=== PATIENT | male | born 1995 | race Caucasian/White ===

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

== ENCOUNTER → 2017-01-26 | Outpatient (CLI) | payer OTHER ==
[~2017-01-26] MED LIST: MONT10TA21 PO
--- NOTE | 2017-01-26 16:26 | Diagnostic Imaging Report ---
INDICATION: Right leg pain. Right leg venous Doppler study was performed in the routine fashion with color flow Doppler and waveform analysis. FINDINGS: The right common femoral vein, superficial femoral vein, popliteal vein and visualized portion of the tibial veins show normal compressibility and venous flow patterns. There is normal augmentation. There is mild edema in the subcutaneous fat in the calf. IMPRESSION: No evidence of deep vein thrombosis of the major veins of the right leg. Dictated by: Dictated on workstation # [id number]
== END ==
LOC: RAD 15:44
PROVIDERS: ATTEND Nurse Practitioner Family
DX: M79.661 Pain in right lower leg (principal); R22.41 Localized swelling, mass and lump, right lower limb

== ENCOUNTER → 2018-02-07 | Outpatient (CLI) | payer OTHER ==
[~2018-02-07] MED LIST changes: +IOHEXOL 350 MG/ML 100 ML (OMNIPAQUE 350) VIAL IV ONE; +NS 250 ML (IVPB) BAG IV ONE
--- NOTE | 2018-02-07 13:48 | Diagnostic Imaging Report ---
PROCEDURE: CT abdomen and pelvis with contrast. TECHNIQUE: Multiple contiguous axial images were obtained through the abdomen and pelvis after administration of intravenous contrast. INDICATION: Vomiting and right lower quadrant pain. COMPARISON: No prior studies are available for comparison. FINDINGS: The lung bases are clear. No discrete liver mass is identified. The pancreas and spleen are unremarkable. No adrenal mass is seen. The kidneys are unremarkable. Aorta is normal caliber. The small and large bowel loops are normal caliber. The appendix is visualized and unremarkable. No inflammatory process in the abdomen or pelvis is seen. There is no ascites. Small lymph nodes scattered throughout the mesentery are seen which could indicate mesenteric adenitis. IMPRESSION: No CT evidence of acute appendicitis. There are scattered lymph nodes within the mesentery, perhaps on the basis of mesenteric adenitis. Dictated by: Dictated on workstation # [id number]
== END ==
LOC: RAD 12:36
PROVIDERS: ATTEND Nurse Practitioner Family
DX: R59.0 Localized enlarged lymph nodes (principal); R11.10 Vomiting, unspecified; R10.31 Right lower quadrant pain; D72.829 Elevated white blood cell count, unspecified
CPT/HCPCS: 74177

== ENCOUNTER 2019-01-11 20:25 | Emergency (ER) | payer OTHER ==
[~2019-01-11] VITALS: Ht 190.5 cm; Wt 113.4 kg
[~2019-01-11 20:25] MED LIST changes: -IOHEXOL 350 MG/ML 100 ML (OMNIPAQUE 350) VIAL IV ONE; -NS 250 ML (IVPB) BAG IV ONE
[2019-01-11] MEDS ORDERED: KETOROLAC 30 MG/ML VIAL IVP STA (21:35)
[2019-01-11] MEDS ORDERED: NS IV 1000 ML 1,000 ML IV STA (21:35)
[2019-01-11 21:40] LABS: BASOPHILS % (AUTO) 0 % (0-10); EOSINOPHILS % (AUTO) 0 % (0-10); HEMATOCRIT 44 % (40-54); HEMOGLOBIN 15.1 G/DL (13.3-17.7); LYMPHOCYTES # (AUTO) 0.7 X 10^3 (1.0-4.0); LYMPHOCYTES % (AUTO) 4 % (12-44); MEAN CORPUSCULAR HEMOGLOBIN 30 PG (25-34); MEAN CORPUSCULAR HGB CONC 35 G/DL (32-36); MEAN CORPUSCULAR VOLUME 86 FL (80-99); MEAN PLATELET VOLUME 9.2 FL (7.4-10.4); MONOCYTES # (AUTO) 0.4 X 10^3 (0.0-1.0); MONOCYTES % (AUTO) 2 % (0-12); NEUTROPHILS # (AUTO) 16.8 X 10^3 (1.8-7.8); NEUTROPHILS % (AUTO) 94 % (42-75); PLATELET COUNT 279 10^3/uL (130-400); RED CELL DISTRIBUTION WIDTH 12.7 % (10.0-14.5); WHITE BLOOD COUNT 17.9 10^3/uL (4.3-11.0)
[2019-01-11] MEDS ORDERED: FAMOTIDINE 20MG/2ML IV (PEPCID) IV STA (21:41)
--- NOTE | 2019-01-11 21:44 | ED GI ---
General Chief Complaint: Abdominal/GI Problems Stated Complaint: ABD PAIN Nursing Triage Note: pt c/o achy, dull epigastric/abdominal pain since this morning along with nausea, vomiting, chills, and diaphoresis. pt reports 8-10 episodes of emesis since he woke up. pt states he drank last night but "not more than usual" for him. Sepsis Screen: No Definite Risk Source of Information: Patient Exam Limitations: No Limitations (SAEID CHILDS) History of Present Illness Date Seen by Provider: Jan 11, 2019 Time Seen by Provider: 21:25 Initial Comments Pt presents with nausea, vomiting and abdominal pain that started this morning. He has vomited multiple times today resulting in dull achy epigastric pain that has been persistent. He also has a headache that is associated with the onset of the vomiting. He currently is having dry heaves and constant pain. He states he did drink some alcohol last night and has a history fo acid reflux a couple times a month which he treats with OTC anti-acids. He did notice a small amount of diarrhea this morning as well. His primary concern is pain control and obtaining IV fluids. Timing/Duration: 12-24 Hours Severity/Quality: Moderate, Aching, Dull Location: Epigastric Radiation: No Radiation Activities at Onset: None Modifying Factors: Worsens With Palpation, Worsens With Vomiting Associated Symptoms: Diaphoresis, Headache, Nausea/Vomiting (SAEID CHILDS) Timing/Duration: 12-24 Hours Severity/Quality: Aching Location: Epigastric Radiation: No Radiation Associated Symptoms: Fatigue, Headache, Nausea/Vomiting (ARSH MCGREGOR MD) Allergies and Home Medications Allergies Coded Allergies: Penicillins (Verified Allergy, Unknown, 08/31/16) peanut (Verified Allergy, Unknown, 08/31/16) Patient Home Medication List Home Medication List Reviewed: Yes (ARSH MCGREGOR MD) Review of Systems Review of Systems Constitutional: no symptoms reported EENTM: No Symptoms Reported Respiratory: No Symptoms Reported Cardiovascular: No Symptoms Reported Gastrointestinal: Abdominal Pain, Diarrhea, Nausea, Vomiting Genitourinary: No Symptoms Reported Musculoskeletal: no symptoms reported Skin: no symptoms reported (SAEID CHILDS) Respiratory: Denies Cough, Denies Shortness of Air Cardiovascular: Denies Chest Pain, Denies Edema Gastrointestinal: See HPI Skin: no symptoms reported Psychiatric/Neurological: No Symptoms Reported (ARSH MCGREGOR MD) Past Odycfhe-Njnfxn-Hafsqb Hx Past Med/Social Hx: Reviewed Nursing Past Med/Soc Hx (ARSH MCGREGOR MD) Patient Social History Alcohol Use: Occasionally Uses Number of Drinks Today: 0 Recreational Drug Use: Yes Drug of Choice: marijuana Smoking Status: Never a Smoker 2nd Hand Smoke Exposure: No Recent Foreign Travel: No Contact w/Someone Who Travel: No Recent Infectious Disease Expo: No Recent Hopitalizations: No (SAEID CHILDS) Seasonal Allergies Seasonal Allergies: Yes (SAEID CHILDS) Past Medical History Surgeries: No Ear Surgery (Bilateral tubes removed at age 7) Respiratory: Yes Asthma Cardiac: No Neurological: No Reproductive Disorders: No Genitourinary: No Gastrointestinal: No Musculoskeletal: No Endocrine: No HEENT: No Cancer: No Psychosocial: No Integumentary: No (SAEID CHILDS) Family Medical History Reviewed Nursing Family Hx (ARSH MCGREGOR MD) No Pertinent Family Hx (ARSH MCGREGOR MD) Physical Exam Vital Signs Vital Signs - First Documented 01/11/19 20:59 Temp 99.2 Pulse 72 Resp 18 B/P (MAP) 161/82 (108) Pulse Ox 100 O2 Delivery Room Air (ARSH MCGREGOR MD) Vital Signs Capillary Refill : Less Than 3 Seconds (SAEID CHILDS) Height/Weight/BMI Height: 6'3.00" Weight: 250lbs. oz. 113.859390de; 28.12 BMI Method:Stated General Appearance: WD/WN, mild distress HEENT: PERRL/EOMI, TMs normal, pharyngeal erythema Neck: full range of motion, normal inspection Respiratory: chest non-tender, lungs clear, normal breath sounds, no respiratory distress, no accessory muscle use Cardiovascular: regular rate, rhythm, no edema, no gallop, no JVD, no murmur Peripheral Pulses: 2+ Radial Pulses (R), 2+ Radial Pulses (L) Gastrointestinal: normal bowel sounds, soft, no organomegaly, no pulsatile mass, tenderness (Epigastric ) Extremities: non-tender, no pedal edema Neurologic/Psychiatric: no motor/sensory deficits, alert, normal mood/affect, oriented x 3 Skin: normal color, warm/dry (SAEID CHILDS) General Appearance: WD/WN, no apparent distress Respiratory: lungs clear, normal breath sounds Cardiovascular: regular rate, rhythm, no murmur Gastrointestinal: normal bowel sounds, soft, tenderness (Epigastric ) Back: normal inspection, no CVA tenderness, no vertebral tenderness Neurologic/Psychiatric: alert, oriented x 3 Skin: normal color, warm/dry (ARSH MCGREGOR MD) Progress/Results/Core Measures Results/Orders Lab Results Laboratory Tests Test 01/11/19 21:05 01/11/19 22:36 Range/Units White Blood Count 17.9 H 4.3-11.0 10^3/uL Red Blood Count 5.06 4.35-5.85 10^6/uL Hemoglobin 15.1 13.3-17.7 G/DL Hematocrit 44 40-54 % Mean Corpuscular Volume 86 80-99 FL Mean Corpuscular Hemoglobin 30 25-34 PG Mean Corpuscular Hemoglobin Concent 35 32-36 G/DL Red Cell Distribution Width 12.7 10.0-14.5 % Platelet Count 279 130-400 10^3/uL Mean Platelet Volume 9.2 7.4-10.4 FL Neutrophils (%) (Auto) 94 H 42-75 % Lymphocytes (%) (Auto) 4 L 12-44 % Monocytes (%) (Auto) 2 0-12 % Eosinophils (%) (Auto) 0 0-10 % Basophils (%) (Auto) 0 0-10 % Neutrophils # (Auto) 16.8 H 1.8-7.8 X 10^3 Lymphocytes # (Auto) 0.7 L 1.0-4.0 X 10^3 Monocytes # (Auto) 0.4 0.0-1.0 X 10^3 Eosinophils # (Auto) 0.0 0.0-0.3 10^3/uL Basophils # (Auto) 0.0 0.0-0.1 10^3/uL Neutrophils % (Manual) 92 % Lymphocytes % (Manual) 4 % Monocytes % (Manual) 2 % Eosinophils % (Manual) 0 % Basophils % (Manual) 0 % Band Neutrophils 2 % Blood Morphology Comment NORMAL Sodium Level 143 135-145 MMOL/L Potassium Level 3.7 3.6-5.0 MMOL/L Chloride Level 105 98-107 MMOL/L Carbon Dioxide Level 17 L 21-32 MMOL/L Anion Gap 21 H 5-14 MMOL/L Blood Urea Nitrogen 15 7-18 MG/DL Creatinine 1.20 0.60-1.30 MG/DL Estimat Glomerular Filtration Rate > 60 BUN/Creatinine Ratio 13 Glucose Level 119 H 70-105 MG/DL Calcium Level 10.4 H 8.5-10.1 MG/DL Corrected Calcium 8.5-10.1 MG/DL Total Bilirubin 0.5 0.1-1.0 MG/DL Aspartate Amino Transf (AST/SGOT) 26 5-34 U/L Alanine Aminotransferase (ALT/SGPT) 65 H 0-55 U/L Alkaline Phosphatase 62 40-136 U/L C-Reactive Protein High Sensitivity 0.10 0.00-0.50 MG/DL Total Protein 8.2 6.4-8.2 GM/DL Albumin 5.2 H 3.2-4.5 GM/DL Urine Color YELLOW Urine Clarity CLEAR Urine pH 8 5-9 Urine Specific [place] 1.010 L 1.016-1.022 Urine Protein 2+ H NEGATIVE Urine Glucose (UA) NEGATIVE NEGATIVE Urine Ketones 1+ H NEGATIVE Urine Nitrite NEGATIVE NEGATIVE Urine Bilirubin NEGATIVE NEGATIVE Urine Urobilinogen NORMAL NORMAL MG/DL Urine Leukocyte Esterase 1+ H NEGATIVE Urine RBC (Auto) NEGATIVE NEGATIVE Urine RBC NONE /HPF Urine WBC RARE /HPF Urine Squamous Epithelial Cells RARE /HPF Urine Crystals NONE /LPF Urine Bacteria NEGATIVE /HPF Urine Casts NONE /LPF Urine Mucus SMALL H /LPF Urine Culture Indicated NO (ARSH MCGREGOR MD) My Orders Orders - ARSH MCGREGOR MD Cbc With Automated Diff (01/11/19 21:35) Comprehensive Metabolic Panel (01/11/19 21:35) Hs C Reactive Protein (01/11/19 21:35) Ua Culture If Indicated (01/11/19 21:35) Ondansetron Injection (Zofran Injectio (01/11/19 21:45) Ns Iv 1000 Ml (Sodium Chloride 0.9%) (01/11/19 21:35) Ed Iv/Invasive Line Start (01/11/19 21:35) Ketorolac Injection (Toradol Injection) (01/11/19 21:35) Famotidine Injection (Pepcid Injection) (01/11/19 21:41) Manual Differential (01/11/19 21:05) Ed Iv/Invasive Line Start (01/11/19 22:03) Lactated Ringers (Lr 1000 Ml Iv Solution (01/11/19 22:03) Ondansetron Injection (Zofran Injectio (01/11/19 22:30) (ARSH MCGREGOR MD) Medications Given in ED Current Medications Medications Dose Ordered Sig/Yajaira Route Start Time Stop Time Status Last Admin Dose Admin Lactated Ringer's 1,000 ml @ 0 mls/hr Q0M ONCE IV 01/11/19 22:03 01/11/19 22:05 DC 01/11/19 22:21 1,000 MLS/HR Ondansetron HCl 4 mg ONCE ONCE IVP 01/11/19 21:45 01/11/19 21:46 DC 01/11/19 21:56 4 MG Ondansetron HCl 4 mg ONCE ONCE IVP 01/11/19 22:30 01/11/19 22:31 DC 01/11/19 22:41 4 MG (ARSH MCGREGOR MD) Vital Signs/I&O 01/11/19 20:59 Temp 99.2 Pulse 72 Resp 18 B/P (MAP) 161/82 (108) Pulse Ox 100 O2 Delivery Room Air (ARSH MCGREGOR MD) Blood Pressure Mean: 108 Progress Progress Note : Time: 21:25 Progress Note Pt seen by me. Pt complains of nausea and vomiting that started today and is associated with epigastric pain. The pt main concern is for IV fluids and pain control. I spoke with Dr Mcgregor about the patient and asked to start fluids along with giving zofran for nausea and give pain medications. (SAEID CHILDS) Progress Note : Progress Note I have seen and evaluated the patient and agree with above except as indicated. Have directed the plan of care. Patient is here with epigastric pain has been going on throughout the day and is associated with nausea and vomiting and dry heaves. Does admit to drinking several beers and a few mixed drinks last night. Does not typically have problems like this. He is concerned about dehydration. IV, labs, UA, normal saline 1 L bolus, Zofran 4 mg IV, Toradol 30 mg IV and Pepcid 20 mg IV ordered. We will additionally order another liter of LR due to concerns about dehydration. Monitor patient. Repeat Zofran ordered due to persistent nausea. 2338: Overall doing better. Discharged home with return precautions. Patient verbalize understanding instructions and agreement with plan. (ARSH MCGREGOR MD) Departure Impression Primary Impression: Nausea and vomiting Qualified Codes: R11.2 - Nausea with vomiting, unspecified Additional Impression: Epigastric abdominal pain Disposition: HOME, SELF-CARE Condition: Improved Departure-Patient Inst. Decision time for Depature: 23:38 (ARSH MCGREGOR MD) Referrals: NO,LOCAL PHYSICIAN (PCP) Primary Care Physician Patient Instructions: Acute Abdomen (Belly Pain), Adult (DC), Nausea and Vomiting, Adult (DC) Add. Discharge Instructions: All discharge instructions reviewed with patient and/or family. Voiced understanding. Clear liquid diet for the next 12-24 hours and then advance as tolerated. You may take Pepcid or the generic famotidine 20 mg once or twice daily for the next few days and then as needed. Return for worsening, fever, vomiting, weakness, breathing problems or other concerns as needed. You may take medications as prescribed. Scripts Ondansetron (Ondansetron Odt) 4 Mg Tab.rapdis 4 MG PO Q6H PRN for NAUSEA/VOMITING, #8 TAB 0 Refills Prov: ARSH MCGREGOR MD 01/11/19 SAEID CHILDS [facility] Jan 11, 2019 21:44 ARSH MCGREGOR MD Jan 11, 2019 23:04
[2019-01-11] MEDS ORDERED: ONDANSETRON 4 MG/2 ML (SDV) Z0FRAN IVP ONE ×2 (21:45→22:30)
[2019-01-11 21:52] LABS: ALANINE AMINOTRANSFERASE 65 U/L (0-55); ALBUMIN 5.2 GM/DL (3.2-4.5); ALKALINE PHOSPHATASE 62 U/L (40-136); BILIRUBIN,TOTAL 0.5 MG/DL (0.1-1.0); BUN/CREATININE RATIO 13; CALCIUM 10.4 MG/DL (8.5-10.1); CARBON DIOXIDE 17 MMOL/L (21-32); CHLORIDE 105 MMOL/L (98-107); GFR ESTIMATED > 60; GLUCOSE 119 MG/DL (70-105); POTASSIUM 3.7 MMOL/L (3.6-5.0); SODIUM 143 MMOL/L (135-145); TOTAL PROTEIN 8.2 GM/DL (6.4-8.2)
[2019-01-11] MEDS ORDERED: LACTATED RINGERS 1,000 ML IV ONE (22:03)
[2019-01-11 22:16] LABS: BAND NEUTROPHILS 2 %; LYMPHOCYTES % (MANUAL) 4 %; MONOCYTES % (MANUAL) 2 %; NEUTROPHILS % (MANUAL) 92 %
[2019-01-11 22:17] LABS: BASOPHILS % (MANUAL) 0 %; EOSINOPHILS % (MANUAL) 0 %; RBC MORPH NORMAL
[2019-01-11 22:43] LABS: BILIRUBIN,URINE NEGATIVE (NEGATIVE); CLARITY,URINE CLEAR; COLOR,URINE YELLOW; GLUCOSE, URINE (UA) NEGATIVE (NEGATIVE); KETONES,URINE 1+ (NEGATIVE); LEUKOCYTE ESTERASE ,URINE 1+ (NEGATIVE); NITRITE,URINE NEGATIVE (NEGATIVE); PH,URINE 8 (5-9); PROTEIN,URINE 2+ (NEGATIVE); UROBILINOGEN,URINE NORMAL (NORMAL)
[2019-01-11 23:05] LABS: WBC,URINE RARE /HPF
[2019-01-11 23:06] LABS: BACTERIA,URINE NEGATIVE /HPF; SQUAMOUS EPITHELIAL CELL,UR RARE /HPF
[2019-01-11] MEDS ORDERED: ONDA4TAB11 PO (23:40)
[2019-01-11 23:57] VITALS: BP 150/83
== END 2019-01-11 23:57 | disposition home or self-care (01) ==
LOC: EDUNIT# 20:25 → ER 20:27
DX: R11.2 Nausea with vomiting, unspecified (principal); R10.13 Epigastric pain; J45.909 Unspecified asthma, uncomplicated
CPT/HCPCS: 36415; 80053; 81000; 85007; 85027; 86141